=== PATIENT | male | born 1995 | race Caucasian/White ===

== ENCOUNTER 2018-07-18 13:26 | Emergency (ER) | payer SELFPAY ==
[~2018-07-18] VITALS: Ht 170.2 cm; Wt 68.5 kg
[2018-07-18] MEDS ORDERED: NAPROSYN (14:08)
[2018-07-18] MEDS ORDERED: AMOXICILLIN 500 MG CAPSULE PO ONE (20:00)
[2018-07-18 20:12] VITALS: BP 134/85
== END 2018-07-18 20:15 | disposition home or self-care (01) ==
LOC: ER 13:26
DX: K04.7 Periapical abscess without sinus (principal); F17.200 Nicotine dependence, unspecified, uncomplicated; F12.10 Cannabis abuse, uncomplicated
CPT/HCPCS: 99283

== ENCOUNTER 2019-03-26 21:22 | Emergency (ER) | payer MEDICAID ==
[~2019-03-26] VITALS: Ht 170.2 cm; Wt 76.0 kg
[~2019-03-26 21:22] MED LIST: NAPROSYN
[2019-03-27] MEDS ORDERED: ACETAMINOPHEN WITH CODEINE 300/30MG TABLET PO ONE (00:15)
[2019-03-27 00:31] VITALS: BP 115/85
== END 2019-03-27 00:33 | disposition home or self-care (01) ==
LOC: ER 21:22
DX: K02.9 Dental caries, unspecified (principal); F17.200 Nicotine dependence, unspecified, uncomplicated
CPT/HCPCS: 99283

== ENCOUNTER 2020-12-09 17:58 | Emergency (ER) | payer MEDICAID ==
[~2020-12-09] VITALS: Ht 170.2 cm; Wt 75.0 kg
[2020-12-09] MEDS ORDERED: LIDOCAINE HCL/EPINEPHRINE 1%-EPI 1:100,000 50 ML VIAL INFIL ONE (18:30)
[2020-12-09] MEDS ORDERED: LIDOCAINE HCL/EPINEPHRINE 1%-EPI 1:100,000 20 ML VIAL INFIL ONE (19:15)
[2020-12-09] MEDS ORDERED: SULF-292 MT (19:25)
[2020-12-09 20:10] VITALS: BP 117/76
== END 2020-12-09 20:10 | disposition home or self-care (01) ==
LOC: ER 17:58
DX: J86.9 Pyothorax without fistula (principal); F15.10 Other stimulant abuse, uncomplicated
CPT/HCPCS: 10060; 99283; J3490; Z7610; 99282

== ENCOUNTER 2021-01-23 08:19 | Emergency (ER) | payer MEDICAID ==
[~2021-01-23] VITALS: Ht 170.2 cm; Wt 68.0 kg
[~2021-01-23 08:19] MED LIST changes: +SULF-292 MT
[2021-01-23] MEDS ORDERED: PIPERACILLIN/TAZ 3.375G PREMIX 50 ML IV ONE (08:45)
[2021-01-23] MEDS ORDERED: VANCOMYCIN 1 G PREMIX 200 ML IV ONE (08:45)
[2021-01-23] MEDS ORDERED: SODIUM CHLORIDE 0.9% 1000ML BAG (SEPSIS BOLUS) IV ONE (08:45)
[2021-01-23] MEDS ORDERED: MORPHINE SULFATE 4 MG/ML CPJ (NOT FOR IM USE) IV STA (08:48)
[2021-01-23] MEDS ORDERED: ONDANSETRON HCL 4MG/2ML INJ IV STA (08:48)
[2021-01-23] MEDS ORDERED: TETANUS, DIPHTHERIA, PERTUSSIS VAC/PF 0.5ML (>7YR OLD) IM ONE (09:00)
[2021-01-23 09:05] LABS: BASOPHILS % 0.4 % (0.0-2.0); EOSINOPHILS % 2.7 % (0.0-5.0); HEMATOCRIT. 37.9 % (42.0-52.0); HEMOGLOBIN. 12.5 g/dL (14.0-18.0); LYMPHOCYTES % 7.5 % (20.0-50.0); MEAN CORPUSCULAR HEMOGLOBIN 27.8 pg (28.0-32.0); MEAN PLATELET VOLUME 7.7 fl (7.4-10.4); MONOCYTES % 3.6 % (2.0-8.0); NEUTROPHILS % 85.8 % (40.0-76.0); PLATELET 321 x1000/uL (130-400); RED BLOOD CELL COUNT 4.51 mill/uL (4.7-6.1); RED CELL DISTRIBUTION WIDTH 14.8 % (11.6-14.6)
[2021-01-23 09:06] LABS: CHLORIDE 104 mEq/L (98-107)
[2021-01-23] MEDS ORDERED: POTASSIUM CHLORIDE 20MEQ TABLET SR PO ONE (11:15)
[2021-01-23] MEDS: PIPERACILLIN/TAZ 3.375G PREMIX 50 ML IV SCH ×2 (16:03→22:00)
[2021-01-23] MEDS ORDERED: OXYCODONE HCL 5MG TABLET PO ONE (21:15)
[2021-01-23] MEDS ORDERED: ACETAMINOPHEN 325MG TABLET PO ONE (21:15)
[2021-01-24] MEDS: PIPERACILLIN/TAZ 3.375G PREMIX 50 ML IV SCH ×2 (04:55→10:13)
[2021-01-24 15:23] VITALS: BP 113/70
== END 2021-01-24 14:49 | disposition short-term general hospital (02) ==
LOC: ER 08:19
DX: S62.502A Fracture of unspecified phalanx of left thumb, initial encounter for closed fracture (principal); M65.9 Synovitis and tenosynovitis, unspecified; F15.10 Other stimulant abuse, uncomplicated; X58.XXXA Exposure to other specified factors, initial encounter; Y93.89 Activity, other specified; Y92.89 Other specified places as the place of occurrence of the external cause; Y99.8 Other external cause status; Z20.822 Contact with and (suspected) exposure to COVID-19
CPT/HCPCS: 36415; 73130; 80053; 85025; 87040; 87426; 90471; 90715; 96361; 96365; 96367; 96368; 96375; 99285; A4217; J2270; J2405; J2543; J3370; J7030; Z7610

== ENCOUNTER 2021-02-04 15:20 | Emergency (ER) | payer MEDICAID ==
[~2021-02-04] VITALS: Ht 170.2 cm; Wt 65.0 kg
[2021-02-04] MEDS ORDERED: KETOROLAC 30MG/ML VIAL IV STA (16:51)
[2021-02-04] MEDS ORDERED: PIPERACILLIN/TAZ 3.375G PREMIX 50 ML IV ONE (17:00)
[2021-02-04] MEDS ORDERED: LEVOFLOXACIN 750MG PREMIX 150 ML IV ONE (17:00)
[2021-02-04 17:24] LABS: BASOPHILS % 0.7 % (0.0-2.0); HEMATOCRIT. 37.4 % (42.0-52.0); LYMPHOCYTES % 24.5 % (20.0-50.0); MEAN CORPUSCULAR HEMOGLOBIN 29.1 pg (28.0-32.0); MEAN CORPUSCULAR VOLUME 83.8 fL (80.0-94.0); MEAN PLATELET VOLUME 6.8 fl (7.4-10.4); NEUTROPHILS % 59.8 % (40.0-76.0); PLATELET 527 x1000/uL (130-400); RED BLOOD CELL COUNT 4.46 mill/uL (4.7-6.1); RED CELL DISTRIBUTION WIDTH 15.6 % (11.6-14.6)
[2021-02-04 17:24] LABS: CLARITY URINE CLOUDY (CLEAR); COLOR URINE YELLOW (YELLOW); KETONES URINE NEGATIVE (NEGATIVE); LEUKOCYTE ESTERASE URINE NEGATIVE (NEGATIVE); NITRITE URINE NEGATIVE (NEGATIVE); OCCULT BLOOD URINE NEGATIVE (NEGATIVE); PROTEIN URINE NEGATIVE (NEGATIVE); UROBILINOGEN URINE 0.2 E.U./dL (0.2-1.0)
[2021-02-04 17:30] LABS: CHLORIDE 103 mEq/L (98-107)
[2021-02-04 17:35] LABS: ETHANOL BLOOD < 10 mg/dL
[2021-02-04 18:01] LABS: *AMPHETAMINES SCREEN URINE NEGATIVE (NEGATIVE); *BARBITURATES SCREEN URINE NEGATIVE (NEGATIVE); *BENZODIAZEPINES SCREEN URINE NEGATIVE (NEGATIVE); *COCAINE SCREEN URINE NEGATIVE (NEGATIVE); METHADONE URINE SCREEN NEGATIVE (NEGATIVE); OPIATES URINE SCREEN PRESUMTIVE POSITIVE (NEGATIVE)
[2021-02-04 18:02] LABS: CANNABINOID URINE SCREEN NEGATIVE (NEGATIVE); PHENCYCLIDINE URINE SCREEN NEGATIVE (NEGATIVE)
[2021-02-05] MEDS ORDERED: PIPERACILLIN/TAZOBACTAM 3.375GM/50ML PREMIX IV SCH
[2021-02-05] MEDS ORDERED: VANCOMYCIN 750 MG PREMIX 150 ML IV SCH (00:15)
[2021-02-05] MEDS ORDERED: PIPERACILLIN/TAZ 3.375G PREMIX 50 ML IV NR (01:00)
[2021-02-05] MEDS ORDERED: VANCOMYCIN 1250MG in DEXTROSE 5% WATER 250ML IV SCH (13:30)
[2021-02-05 17:11] VITALS: BP 115/97
== END 2021-02-05 17:30 | disposition left against medical advice (07) ==
LOC: ER 15:31
DX: S62.521A Displaced fracture of distal phalanx of right thumb, initial encounter for closed fracture (principal); L03.011 Cellulitis of right finger; W22.8XXA Striking against or struck by other objects, initial encounter; Y93.89 Activity, other specified; Y92.89 Other specified places as the place of occurrence of the external cause; Y99.8 Other external cause status; F15.10 Other stimulant abuse, uncomplicated; Z20.822 Contact with and (suspected) exposure to COVID-19
CPT/HCPCS: 36415; 71045; 73140; 80053; 80305; 80320; 81003; 84145; 85025; 85651; 87040; 87086; 87426; 93005; 96365; 96366; 96367; 96375; 99285; J1885; J1956; J2543; J3370; J7060; Z7610; G0480

== ENCOUNTER 2021-03-10 10:53 | Emergency (ER) | payer MEDICAID ==
[~2021-03-10] VITALS: Ht 170.2 cm; Wt 82.0 kg
[2021-03-10 14:00] VITALS: BP 128/70
[2021-03-10] MEDS: BACITRACIN ZINC OINT UDPKT TOP ONE (14:10)
== END 2021-03-10 14:00 | disposition home or self-care (01) ==
LOC: ER 10:53
DX: S61.012D Laceration without foreign body of left thumb without damage to nail, subsequent encounter (principal); Z48.02 Encounter for removal of sutures; X58.XXXD Exposure to other specified factors, subsequent encounter
CPT/HCPCS: 99282; Z7610

== ENCOUNTER 2021-04-05 12:35 | Emergency (ER) | payer MEDICAID ==
[~2021-04-05] VITALS: Ht 170.2 cm; Wt 75.0 kg
[2021-04-05 12:46] VITALS: BP 108/70
== END 2021-04-05 15:35 | disposition home or self-care (01) ==
LOC: ER 12:35
DX: Z46.89 Encounter for fitting and adjustment of other specified devices (principal); Z98.890 Other specified postprocedural states
CPT/HCPCS: 99281; Z7610; 99284

== ENCOUNTER 2023-11-11 19:30 | Inpatient (IN) | payer MEDICAID ==
[~2023-11-11] VITALS: Ht 170.2 cm; Wt 68.5 kg
[2023-11-11] MEDS: SODIUM CHLORIDE 0.9% 1000ML BAG (SEPSIS BOLUS) IV ONE (00:15)
[2023-11-11] MEDS ORDERED: VANCOMYCIN 1G PREMIX 200 ML IV ONE (22:15)
[2023-11-11] MEDS ORDERED: PIPERACILLIN/TAZO 3.375G/50ML 50 ML IV ONE (22:15)
[2023-11-11 22:21] LABS: HEMATOCRIT. 38.6 % (42.0-52.0); HEMOGLOBIN. 13.2 g/dL (14.0-18.0); MEAN CORPUSCULAR HEMOGLOBIN 31.1 pg (28.0-32.0); MEAN CORPUSCULAR HGB CONC 34.2 g/dL (31.0-37.0); MEAN PLATELET VOLUME 7.7 fl (7.4-10.4); PLATELET 376 x1000/uL (130-400); RED BLOOD CELL COUNT 4.24 mill/uL (4.7-6.1); RED CELL DISTRIBUTION WIDTH 14.1 % (11.6-14.6); WHITE BLOOD COUNT 19.3 x1000/uL (4.5-11.0)
[2023-11-11 22:24] LABS: DIFFERENTIAL COMMENT 1
[2023-11-11 22:32] LABS: CHLORIDE 93 mEq/L (98-107); POTASSIUM 4.2 mEq/L (3.5-5.1); SODIUM 126 mEq/L (136-145)
[2023-11-11 22:33] LABS: CALCIUM 8.6 mg/dL (8.7-10.4); CARBON DIOXIDE 26 mEq/L (21-32)
[2023-11-11 22:35] LABS: INR 1.1; PARTIAL THROMBOPLASTIN TIME 26.2 sec (23.4-31.0); PROTHROMBIN TIME 12.6 sec (9.6-11.0)
[2023-11-11 22:38] LABS: CREATININE 0.9 mg/dL (0.6-1.3); GLUCOSE 106 mg/dL (70-105)
[2023-11-11 22:39] LABS: UREA NITROGEN BLOOD 10 mg/dL (9-23)
[2023-11-11 22:40] LABS: ALANINE AMINOTRANSFERASE 144 IU/L (10-49); ALBUMIN 3.9 g/dL (3.2-4.8); ASPARTATE AMINOTRANSFERASE 168 IU/L (<34); BILIRUBIN DIRECT 2.7 mg/dL (<=3.0)
[2023-11-11 22:41] LABS: BILIRUBIN TOTAL 3.7 mg/dL (0.1-1.0); PROTEIN TOTAL 7.1 g/dL (6.0-8.3)
[2023-11-11 22:52] LABS: ETHANOL BLOOD < 10 mg/dL (<10); TROPONIN I HIGH SENSITIVITY < 4 ng/L (3.0-53)
[2023-11-11 22:59] LABS: PLATELET ESTIMATE NORMAL
[2023-11-11 23:07] LABS: BG BASE EXCESS -1.6 mmol/L (-2.0-2.0); BG CARBOXYHEMOGLOBIN 2.3 % (0.5-1.5); BG DEOXYHEMOGLOBIN 2.4 % (0.0-5.0); BG HCO3 ACT 21.6 mmol/L (22.0-26.0); BG METHEMOGLOBIN 0.5 % (0.0-1.5); BG OXYGEN SATURATION 97.5 % (92.0-98.5); BG OXYHEMOGLOBIN 94.8 % (94.0-97.0); BG PCO2 32.7 mmHg (35.0-45.0); BG PH 7.438 (7.350-7.450); BG PO2 92.4 mmHg (75.0-100.0); BG SAMPLE SITE RIGHT RADIAL; BG TOTAL HEMOGLOBIN 16.2 g/dL (12.0-18.0); BG VENT MODE ROOM AIR
[2023-11-12] MEDS: PIPERACILLIN/TAZO 3.375G/50ML 50 ML IV NR (00:38)
[2023-11-12] MEDS: AZITHROMYCIN 500MG/250ML 250 ML IV SCH ×2 (00:59→22:35)
[2023-11-12] MEDS: VANCOMYCIN 1G PREMIX 200 ML IV NR (02:29)
[2023-11-12] MEDS: ACETAMINOPHEN 1000MG/100ML 100 ML IV ONE (04:28)
[2023-11-12 08:00] VITALS: BP_SYST 145; BP_SYST 92; BP_DIAS 52; BP_DIAS 61; PULSE 63; PULSE 78; RESP 18; TEMP 97.7
[2023-11-12] MEDS ORDERED: CEFTRIAXONE 1GM/50ML 50 ML IV SCH (09:00)
[2023-11-12 11:00] VITALS: BP 93/58; PULSE 87; RESP 16; TEMP 97.6
[2023-11-12 11:47] LABS: MEAN CORPUSCULAR HEMOGLOBIN 31.8 pg (28.0-32.0); MEAN CORPUSCULAR VOLUME 90.8 fL (80.0-94.0); PLATELET 381 x1000/uL (130-400); RED BLOOD CELL COUNT 4.08 mill/uL (4.7-6.1); RED CELL DISTRIBUTION WIDTH 14.1 % (11.6-14.6); WHITE BLOOD COUNT 16.8 x1000/uL (4.5-11.0)
[2023-11-12 11:51] LABS: CARBON DIOXIDE 26 mEq/L (21-32); CHLORIDE 98 mEq/L (98-107); POTASSIUM 3.7 mEq/L (3.5-5.1); SODIUM 129 mEq/L (136-145)
[2023-11-12 11:52] LABS: DIFFERENTIAL COMMENT 1
[2023-11-12 11:57] LABS: CREATININE 0.6 mg/dL (0.6-1.3); GLUCOSE 144 mg/dL (70-105); UREA NITROGEN BLOOD 9 mg/dL (9-23)
[2023-11-12 12:00] VITALS: BP 97/55; PULSE 75; RESP 18; TEMP 98.2
[2023-11-12] MEDS: CEFTRIAXONE 1GM/50ML 50 ML IV SCH (13:06)
[2023-11-12] MEDS: SODIUM CHLORIDE 0.9% 1,000 ML IV SCH (13:06)
[2023-11-12 16:00] VITALS: BP 94/54; PULSE 85; RESP 17; TEMP 98
[2023-11-12 16:40] LABS: PLATELET ESTIMATE NORMAL
[2023-11-12] MEDS ORDERED: IPRATROPIUM/ALBUTEROL 0.5-3(2.5)MG/3ML NEB HHN PRN (17:00)
[2023-11-12 20:00] VITALS: BP 99/49; PULSE 77; RESP 18; TEMP 97.8
[2023-11-12 21:15] VITALS: PULSE 88; RESP 18; O2SAT 96
[2023-11-12] MEDS: ACETYLCYSTEINE 200MG/ML 20% VIAL 4ML INH SCH (21:15)
[2023-11-12] MEDS: IPRATROPIUM/ALBUTEROL 0.5-3(2.5)MG/3ML NEB HHN SCH (21:16)
[2023-11-13] VITALS (8 sets, daily range): BP systolic 92–106; BP diastolic 53–61; PULSE 70–93; RESP 17–20; TEMP 97.6–98.7; O2SAT 97
[2023-11-13 12:07] LABS: BASOPHILS % 0.2 % (0.0-2.0); HEMATOCRIT. 36.7 % (42.0-52.0); HEMOGLOBIN. 12.7 g/dL (14.0-18.0); LYMPHOCYTES % 8.2 % (20.0-50.0); MEAN CORPUSCULAR HEMOGLOBIN 31.5 pg (28.0-32.0); MEAN CORPUSCULAR HGB CONC 34.7 g/dL (31.0-37.0); MEAN CORPUSCULAR VOLUME 90.8 fL (80.0-94.0); MONOCYTES % 8.5 % (2.0-8.0); NEUTROPHILS % 82.1 % (40.0-76.0); PLATELET 484 x1000/uL (130-400); RED BLOOD CELL COUNT 4.04 mill/uL (4.7-6.1); RED CELL DISTRIBUTION WIDTH 14.1 % (11.6-14.6); WHITE BLOOD COUNT 7.7 x1000/uL (4.5-11.0)
[2023-11-13 12:11] LABS: CHLORIDE 102 mEq/L (98-107); POTASSIUM 3.6 mEq/L (3.5-5.1); SODIUM 135 mEq/L (136-145)
[2023-11-13 12:12] LABS: CARBON DIOXIDE 28 mEq/L (21-32)
[2023-11-13 12:13] LABS: CALCIUM 8.1 mg/dL (8.7-10.4)
[2023-11-13 12:17] LABS: CREATININE 0.6 mg/dL (0.6-1.3); GLUCOSE 106 mg/dL (70-105)
[2023-11-13 12:18] LABS: UREA NITROGEN BLOOD 8 mg/dL (9-23)
[2023-11-13 12:20] LABS: PHOSPHORUS 3.2 mg/dL (2.5-4.9)
[2023-11-13 12:32] LABS: HEPATITIS B SURFACE ANTIGEN NEGATIVE (Negative)
[2023-11-13 12:53] LABS: HEPATITIS A AB IGM NEGATIVE (Negative)
[2023-11-13 12:54] LABS: HEPATITIS B CORE AB IGM NEGATIVE (Negative)
[2023-11-13 12:55] LABS: HEPATITIS C AB NON REACTIVE (Neg) (Negative)
[2023-11-13 14:24] LABS: TRIGLYCERIDE 123 mg/dL (0-150)
[2023-11-13 14:25] LABS: LDL CHOLESTEROL 39 mg/dL (5-100)
[2023-11-13 14:26] LABS: CHOLESTEROL 75 mg/dL (<200); HDL CHOLESTEROL < 20 mg/dL (>55)
[2023-11-14] VITALS: BP 91/55; PULSE 75; RESP 20; TEMP 98.1
[2023-11-14 04:00] VITALS: BP 99/62; PULSE 62; RESP 19; TEMP 98.2
[2023-11-14 07:14] LABS: BASOPHILS % 0.5 % (0.0-2.0); EOSINOPHILS % 2.2 % (0.0-5.0); HEMATOCRIT. 38.1 % (42.0-52.0); HEMOGLOBIN. 12.7 g/dL (14.0-18.0); LYMPHOCYTES % 11.2 % (20.0-50.0); MEAN CORPUSCULAR HEMOGLOBIN 31.2 pg (28.0-32.0); MEAN CORPUSCULAR HGB CONC 33.4 g/dL (31.0-37.0); MEAN CORPUSCULAR VOLUME 93.4 fL (80.0-94.0); MONOCYTES % 8.6 % (2.0-8.0); NEUTROPHILS % 77.5 % (40.0-76.0); PLATELET 541 x1000/uL (130-400); RED BLOOD CELL COUNT 4.08 mill/uL (4.7-6.1); WHITE BLOOD COUNT 5.9 x1000/uL (4.5-11.0)
[2023-11-14 07:38] LABS: CARBON DIOXIDE 25 mEq/L (21-32); CHLORIDE 103 mEq/L (98-107); POTASSIUM 3.5 mEq/L (3.5-5.1); SODIUM 137 mEq/L (136-145)
[2023-11-14 07:39] LABS: CALCIUM 8.2 mg/dL (8.7-10.4)
[2023-11-14 07:42] LABS: CREATININE 0.5 mg/dL (0.6-1.3)
[2023-11-14 07:44] LABS: GLUCOSE 91 mg/dL (70-105); UREA NITROGEN BLOOD 7 mg/dL (9-23)
[2023-11-14 09:10] LABS: % CD 3 POS. LYMPHOCYTES 60.4 % (57.5-86.2); % CD 4 POS. LYMPHOCYTES 15.6 % (30.8-58.5); % CD 8 POS. LYMPH 42.8 % (12.0-35.5); ABSOLUTE CD 3 423 /uL (622-2402); ABSOLUTE CD 4 HELPER 109 /uL (359-1519); ABSOLUTE CD 8 SUPPRESSOR 300 /uL (109-897); ABSOLUTE EOSINOPHILS 0.1 x10E3/uL (0.0-0.4); ABSOLUTE LYMPHOCYTES 0.7 x10E3/uL (0.7-3.1); ABSOLUTE MONOCYTES 0.5 x10E3/uL (0.1-0.9); ABSOLUTE NEUTROPHILS 6.3 x10E3/uL (1.4-7.0); BASOPHILS 0 % (Not Estab.); CD4/CD8 RATIO 0.36 (0.92-3.72); EOSINOPHILS 1 % (Not Estab.); HEMATOCRIT 35.6 % (37.5-51.0); HEMOGLOBIN 12.3 g/dL (13.0-17.7); IMMATURE GRANULOCYTES 3 % (Not Estab.); IMMATURE GRANULOCYTES ABSOLUTE 0.2 x10E3/uL (0.0-0.1); LYMPHOCYTES 9 % (Not Estab.); MEAN CORPUSCULAR HEMOGLOBIN 30.8 pg (26.6-33.0); MEAN CORPUSCULAR HGB CONC. 34.6 g/dL (31.5-35.7); MEAN CORPUSCULAR VOLUME 89 fL (79-97); MONOCYTES 7 % (Not Estab.); NEUTROPHILS 80 % (Not Estab.); PLATELETS 527 x10E3/uL (150-450); RBC 3.99 x10E6/uL (4.14-5.80); RED CELL DISTRIBUTION WIDTH 12.9 % (11.6-15.4); WBC 7.9 x10E3/uL (3.4-10.8)
[2023-11-14] MEDS ORDERED: SULF1TAB44 PO (09:15)
[2023-11-14] MEDS ORDERED: BICT1TAB PO ×2 (09:15→09:17)
[2023-11-14] MEDS ORDERED: AZIT250T12 PO (09:17)
[2023-11-14 09:35] VITALS: PULSE 91; RESP 20; O2SAT 99
[2023-11-14] MEDS ORDERED: LEVO750T68 MT (09:46)
[2023-11-14 12:00] VITALS: BP 95/56; PULSE 64; RESP 20; TEMP 97.8
[2023-11-14 12:25] VITALS: BP 95/56; PULSE 66; TEMP 97.8; O2SAT 100
== END 2023-11-14 13:45 | disposition home or self-care (01) | DRG 890 ==
LOC: ER 19:30 → 7WST 11-12 00:45
PROVIDERS: ADMIT Internal Medicine; ATTEND Internal Medicine
DX: A41.9 Sepsis, unspecified organism (principal); B20 Human immunodeficiency virus [HIV] disease; J96.00 Acute respiratory failure, unspecified whether with hypoxia or hypercapnia; J18.9 Pneumonia, unspecified organism; E87.1 Hypo-osmolality and hyponatremia; R74.01 Elevation of levels of liver transaminase levels; Z20.822 Contact with and (suspected) exposure to COVID-19; F17.210 Nicotine dependence, cigarettes, uncomplicated; F19.10 Other psychoactive substance abuse, uncomplicated; Z91.148 Patient's other noncompliance with medication regimen for other reason
CPT/HCPCS: 36415; 36600; 71045; 71250; 76700; 80048; 80061; 80076; 80320; 82375; 82533; 82805; 83605; 83735; 83880; 83930; 84100; 84145; 84443; 84484; 85025; 86359; 86360; 86705; 86709; 87340; 87426; 87804; 93005; 94640; 99291; J0456; J0696; J2543; J3370; J7030; J7608; G0480; J0131